=== PATIENT | male | born 1975 | race Caucasian/White ===

== ENCOUNTER 2022-08-05 20:59 | Emergency (ER) | payer OTHER | END 2022-08-05 21:12 | disposition left against medical advice (07) | LOC: ER 20:59 | DX: F10.129 Alcohol abuse with intoxication, unspecified (principal); Y90.0 Blood alcohol level of less than 20 mg/100 ml; Z53.21 Procedure and treatment not carried out due to patient leaving prior to being seen by health care provider | CPT/HCPCS: 99281 ==

== ENCOUNTER 2023-02-05 19:39 | Emergency (ER) | payer OTHER ==
[~2023-02-05] VITALS: Ht 167.6 cm; Wt 69.0 kg
[2023-02-05 19:43] VITALS: BP 137/91; PULSE 137; RESP 16; O2SAT 100
[2023-02-05] MEDS ORDERED: ACETAMINOPHEN 325MG TABLET PO STA (21:43)
[2023-02-05] MEDS ORDERED: SODIUM CHLORIDE 0.9% 1,000 ML IV ONE (21:45)
[2023-02-05 22:42] VITALS: TEMP 98.2
[2023-02-05 22:45] LABS: BASOPHILS % 1.3 % (0.0-2.0); EOSINOPHILS % 3.3 % (0.0-5.0); HEMOGLOBIN. 14.8 g/dL (14.0-18.0); LYMPHOCYTES % 18.2 % (20.0-50.0); MEAN CORPUSCULAR HEMOGLOBIN 33.1 pg (28.0-32.0); MEAN CORPUSCULAR HGB CONC 35.1 g/dL (31.0-37.0); MEAN CORPUSCULAR VOLUME 94.2 fL (80.0-94.0); MEAN PLATELET VOLUME 8.1 fl (7.4-10.4); MONOCYTES % 11.4 % (2.0-8.0); NEUTROPHILS % 65.8 % (40.0-76.0); PLATELET 242 x1000/uL (130-400); RED BLOOD CELL COUNT 4.46 mill/uL (4.7-6.1); RED CELL DISTRIBUTION WIDTH 12.9 % (11.6-14.6); WHITE BLOOD COUNT 9.1 x1000/uL (4.5-11.0)
[2023-02-05] MEDS ORDERED: ONDANSETRON HCL 4MG/2ML INJ IV ONE (22:45)
[2023-02-05 22:52] LABS: CHLORIDE 106 mEq/L (98-107); INDEX HEMOLYSI 1 (1-3); INDEX ICTERIC 1 (1-4); INDEX LIPEMIC 1 (1-3); POTASSIUM 2.9 mEq/L (3.5-5.1); SODIUM 140 mEq/L (136-145)
[2023-02-05] MEDS ORDERED: LORAZEPAM 2MG/ML CPJ IV ONE (23:00)
[2023-02-05 23:01] LABS: ALANINE AMINOTRANSFERASE 176 IU/L (13-61); ALBUMIN 3.9 g/dL (3.4-5.0); ASPARTATE AMINOTRANSFERASE 157 IU/L (15-37); BILIRUBIN TOTAL 0.4 mg/dL (0.1-1.0); CALCIUM 8.7 mg/dL (8.5-10.1); CARBON DIOXIDE 22 mEq/L (21-32); CREATININE 0.8 mg/dL (0.6-1.3); ETHANOL BLOOD 109 mg/dL (<10); GLUCOSE 132 mg/dL (70-105); PROTEIN TOTAL 8.4 g/dL (6.0-8.3); UREA NITROGEN BLOOD 5 mg/dL (7-21)
[2023-02-06] MEDS ORDERED: POTASSIUM CHLORIDE 20MEQ/PACKET PO ONE (00:45)
[2023-02-06] MEDS ORDERED: POTASSIUM CHLORIDE 20MEQ/PACKET PO NR (03:00)
== END 2023-02-06 02:58 | disposition home or self-care (01) ==
LOC: ER 19:39
DX: M25.511 Pain in right shoulder (principal); F10.129 Alcohol abuse with intoxication, unspecified; R20.2 Paresthesia of skin; Y90.5 Blood alcohol level of 100-119 mg/100 ml; E87.6 Hypokalemia; I10 Essential (primary) hypertension
CPT/HCPCS: 80053; 80320; 83690; 85025; 36415; 71045; 73030; 70450; 72125; 93005; 96361; 96374; 96375; 99285; J2060; J2405; J7030; Z7610; G0480

== ENCOUNTER 2024-08-30 09:28 | Emergency (ER) | payer OTHER ==
[~2024-08-30] VITALS: Ht 170.2 cm; Wt 73.0 kg
[2024-08-30 09:30] VITALS: O2SAT 98
[2024-08-30 10:01] LABS: BASOPHILS % 1.2 % (0.0-2.0); EOSINOPHILS % 5.8 % (0.0-5.0); HEMATOCRIT. 45.8 % (42.0-52.0); HEMOGLOBIN. 15.4 g/dL (14.0-18.0); LYMPHOCYTES % 27.8 % (20.0-50.0); MEAN CORPUSCULAR HGB CONC 33.5 g/dL (31.0-37.0); MEAN CORPUSCULAR VOLUME 92.5 fL (80.0-94.0); MEAN PLATELET VOLUME 7.4 fl (7.4-10.4); MONOCYTES % 9.4 % (2.0-8.0); NEUTROPHILS % 55.8 % (40.0-76.0); PLATELET 331 x1000/uL (130-400); RED BLOOD CELL COUNT 4.96 mill/uL (4.7-6.1); RED CELL DISTRIBUTION WIDTH 13.2 % (11.6-14.6); WHITE BLOOD COUNT 6.7 x1000/uL (4.5-11.0)
[2024-08-30 10:14] LABS: CHLORIDE 106 mEq/L (98-107); POTASSIUM 3.4 mEq/L (3.5-5.1); SODIUM 139 mEq/L (136-145)
[2024-08-30 10:15] LABS: CARBON DIOXIDE 22 mEq/L (21-32)
[2024-08-30 10:16] LABS: CALCIUM 9.3 mg/dL (8.7-10.4)
[2024-08-30 10:20] LABS: CREATININE 0.8 mg/dL (0.6-1.3); GLUCOSE 149 mg/dL (70-105); UREA NITROGEN BLOOD < 5 mg/dL (9-23)
[2024-08-30 10:21] LABS: ETHANOL BLOOD 97 mg/dL (<10)
[2024-08-30] MEDS ORDERED: NALO4SPR BOTHNSTRLS (10:56)
[2024-08-30 11:11] VITALS: BP 142/78; PULSE 95; RESP 16; TEMP 36.9; O2SAT 98
[2024-08-30] MEDS: POTASSIUM CHLORIDE 20MEQ/PACKET PO ONE (11:11)
== END 2024-08-30 11:14 | disposition home or self-care (01) ==
LOC: ER 09:40
DX: F10.129 Alcohol abuse with intoxication, unspecified (principal); F15.10 Other stimulant abuse, uncomplicated; Z87.891 Personal history of nicotine dependence; Z88.6 Allergy status to analgesic agent; Y90.9 Presence of alcohol in blood, level not specified
CPT/HCPCS: 80048; 80320; 85025; 36415; 99283; Z7610; G0480